=== PATIENT | male | born 1960 | race Caucasian/White ===

== ENCOUNTER 2016-08-01 17:19 | Emergency (ER) | payer BC, OTHER ==
[2016-08-01 17:24] VITALS: BP 141/83; PULSE 81; TEMP 97.4; BMI 33.0
[2016-08-01] MEDS ORDERED: SODIUM CHLORIDE 0.9% 1000 ML INFUS.BAG IV ONE (18:14)
[2016-08-01] MEDS ORDERED: KETOROLAC TROMETHAMINE 30 MG/1 ML VIAL IVPUSH ONE (18:27)
--- NOTE | 2016-08-01 18:33 | PDOC ---
History of Present Illness - General Chief Complaint: Pain Stated Complaint: SIDE PAIN/VOMITING Time Seen by Provider: 08/01/16 18:12 - History of Present Illness Initial Comments: 08/01/16 18:28 CHIEF COMPLAINT: "kidney stones" HISTORY OF PRESENT ILLNESS: 55 yo M with hx of nephrolithiasis, cholelithiasis, and left inguinal hernia presents to ED with L flank pain since today. Patient reports that this feels like his previous kidney stones and that he had "two attacks today" with nausea, vomiting, and diaphoresis, and 10/10 pain to his L flank. PAST MEDICAL HISTORY: Denies past medical history FAMILY HISTORY: Denies SOCIAL HISTORY: Denies tobacco, illicit drug use. Occasional alcohol use. SURGICAL HISTORY: Denies ALLERGIES: codeine REVIEW OF SYSTEMS General/Constitutional: Denies fever or chills. Denies weakness, weight change. Cardiovascular: Denies chest pain or shortness of breath. Respiratory: Denies cough, wheezing, or hemoptysis. Gastrointestinal: Nausea/vomiting secondary to pain today. Denies diarrhea or constipation. Denies rectal bleeding. Genitourinary: L flank pain. Denies dysuria, frequency, or change in urination. Musculoskeletal: Denies joint or muscle swelling or pain. Denies neck or back pain. Neurologic: Denies headache, vertigo, loss of consciousness, or loss of sensation. PHYSICAL EXAM General Appearance: Well-appearing, appropriately dressed. . HEENT: EOMI, PERRLA. Respiratory/Chest: Lungs CTAB. Cardiovascular: RRR. S1, S2. Gastrointestinal/Abdominal: Normal bowel sounds. Abdomen soft, non-distended. No tenderness or rebound tenderness. No organomegaly, pulsatile mass, guarding , hernia, hepatomegaly, splenomegaly. Musculoskeletal/Extremities: L CVA tenderness. Normal inspection. FROM of all extremities, normal capillary refill. Pelvis Stable. No tenderness to extremities, pedal edema, swelling, erythema or deformity. Integumentary: Appropriate color, dry, warm. 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 Fully oriented, alert. Appropriate mood/affect. Motor strength 5/5. No appreciable EOM palsy, facial droop or sensory deficit. Past History - Past Medical History Allergies/Adverse Reactions: Allergies Allergy/AdvReac Type Severity Reaction Status Date / Time codeine AdvReac Verified 08/01/16 17:23 Home Medications: Ambulatory Orders No Home Medications 0 dose .ROUTE UTDICT 08/27/12 Ibuprofen 800 mg PO TID PRN #21 tablet 08/01/16 Tamsulosin HCl [Flomax] 0.4 mg PO DAILY #21 cap.er.24h 08/01/16 Kidney Stones: Yes - Psycho/Social/Smoking Cessation Hx Anxiety: No Suicidal Ideation: No Smoking Status: No Smoking History: Never smoked Number of Cigarettes Smoked Daily: 0 Hx Alcohol Use: Yes (SOCIAL) Drug/Substance Use Hx: No Substance Use Type: None *Physical Exam - Vital Signs Last Vital Signs Temp Pulse Resp BP Pulse Ox 97.4 F L 81 20 141/83 97 08/01/16 17:21 08/01/16 17:21 08/01/16 17:21 08/01/16 17:21 08/01/16 17:21 ED Treatment Course - LABORATORY CBC & Chemistry Diagram: 08/01/16 19:40 08/01/16 19:40 Medical Decision Making - Medical Decision Making 08/01/16 18:33 55 yo M with hx of nephrolithiasis, cholelithiasis, and left inguinal hernia presents to ED with L flank pain since today. -CBC, CMP -IVF, Toradol -Renal ultrasound Patient reports that he has an appointment on Saturday with surgeon to discuss cholecystectomy. 08/01/16 18:35 Advised patient to take medication as prescribed and follow up with urologist. Advised patient of signs and symptoms for return to ED. Patient verbalized understanding and agrees to plan. *DC/Admit/Observation/Transfer Diagnosis at time of Disposition: Kidney stone on left side - Discharge Dispostion Disposition: HOME Condition at time of disposition: Stable Admit: No - Prescriptions Prescriptions: Tamsulosin HCl [Flomax] 0.4 mg PO DAILY #21 cap.er.24h Ibuprofen 800 mg PO TID PRN #21 tablet PRN Reason: Pain - Referrals Referrals: Thomas Diallo MD., MD [Staff Physician] - - Patient Instructions Printed Discharge Instructions: DI for Kidney Stones Additional Instructions: Please take medication as directed. Follow up with urology for continued evaluation of your recurrent kidney stones. Please keep your appointment with the surgeon next Saturday regarding your gallstones. If you experience any worsening pain to your groin, any shortness of breath, chest pain, or increased nausea/vomiting, abdominal pain, or any new or worsening symptoms, please return to the ER. - Post Discharge Activity Work/School Note: Back to Work
--- NOTE | 2016-08-01 19:26 | PDOC ---
*Physical Exam - Vital Signs Last Vital Signs Temp Pulse Resp BP Pulse Ox 97.4 F L 81 20 141/83 97 08/01/16 17:21 08/01/16 17:21 08/01/16 17:21 08/01/16 17:21 08/01/16 17:21 ED Treatment Course - LABORATORY CBC & Chemistry Diagram: 08/01/16 19:40 08/01/16 19:40 Medical Decision Making - Medical Decision Making 08/01/16 19:26 agree with care from NITISH Leiva *DC/Admit/Observation/Transfer Diagnosis at time of Disposition: Kidney stone on left side - Discharge Dispostion Disposition: HOME Condition at time of disposition: Stable - Prescriptions Prescriptions: Tamsulosin HCl [Flomax] 0.4 mg PO DAILY #21 cap.er.24h Ibuprofen 800 mg PO TID PRN #21 tablet PRN Reason: Pain - Referrals Referrals: Thomas Diallo MD., MD [Staff Physician] - - Patient Instructions Printed Discharge Instructions: DI for Kidney Stones Additional Instructions: Please take medication as directed. Follow up with urology for continued evaluation of your recurrent kidney stones. Please keep your appointment with the surgeon next Saturday regarding your gallstones. If you experience any worsening pain to your groin, any shortness of breath, chest pain, or increased nausea/vomiting, abdominal pain, or any new or worsening symptoms, please return to the ER. - Post Discharge Activity Work/School Note: Back to Work
[2016-08-01] MEDS ORDERED: KETOROLAC TROMETHAMINE 30 MG/1 ML VIAL ONE (19:30)
[2016-08-01 19:58] LABS: BASOPHIL 0.6 % (0-2.0); MCH 28.9 pg (25.7-33.7); MCHC 33.3 g/dl (32.0-35.9); MEAN PLT VOLUME 9.3 fl (7.5-11.1); NEUTROPHILS 88.6 % (42.8-82.8); PLATELET COUNT 251 K/MM3 (134-434); RDW 13.1 % (11.9-15.9); WHITE BLOOD COUNT 14.8 K/mm3 (4.0-10.0)
[2016-08-01 20:24] LABS: ALBUMIN 4.1 g/dl (3.4-5.0); ANION GAP 8 (8-16); CALCIUM 9.2 mg/dL (8.5-10.1); CO2 27 mmol/L (21-32); CREATININE 1.4 mg/dL (0.7-1.3); GLUCOSE,RANDOM 126 mg/dL (74-106); SGOT/AST 30 U/L (15-37); SGPT/ALT 43 U/L (12-78)
[2016-08-01 20:26] LABS: ALK PHOS 92 U/L (45-117); BILIRUBIN,TOTAL 0.7 mg/dL (0.2-1.0); TOT PROT 7.6 g/dl (6.4-8.2)
[2016-08-01 20:45] LABS: URINE APPEARANCE CLEAR; URINE BILIRUBIN NEGATIVE (NEGATIVE); URINE COLOR LTYELLOW; URINE GLUCOSE (UA) NEGATIVE (NEGATIVE); URINE KETONE TRACE (NEGATIVE); URINE LEUK ESTERASE NEGATIVE (NEGATIVE); URINE NITRITE NEGATIVE (NEGATIVE); URINE UROBILINOGEN NEGATIVE E.U./dl (0.2-1.0)
[2016-08-01 20:47] LABS: URINE BLOOD 2+ (NEGATIVE); URINE PROTEIN 1+ (NEGATIVE)
[2016-08-01 20:49] LABS: URINE MUCUS RARE; URINE RBC 18 /hpf (0-3); URINE WBC 3 /hpf (3-5)
[2016-08-01] MEDS ORDERED: TAMSULOSIN HCL 0.4 MG CAP.ER.24H (FP) PO ONE (21:21)
[2016-08-01] MEDS ORDERED: TAMSULOSIN HCL 0.4 MG CAP.ER.24H (FP) ONE (21:51)
== END 2016-08-01 22:01 | disposition home or self-care (01) ==
LOC: JER 17:19
PROC: 3E0333Z Introduction of Anti-inflammatory into Peripheral Vein, Percutaneous Approach (ICD-10-PCS; principal; 2016-08-01)
DX: N20.0 Calculus of kidney (principal); Z87.442 Personal history of urinary calculi
CPT/HCPCS: 36415; 74176; 80053; 81003; 81015; 85025; 87086; 99282-25

== ENCOUNTER 2017-12-19 17:48 | Emergency (ER) | payer BC, OTHER ==
[2017-12-19 17:53] VITALS: TEMP 97.6; BMI 34.7
--- NOTE | 2017-12-19 17:55 | PDOC ---
Rapid Medical Evaluation Chief Complaint: Chest Pain Time Seen by Provider: 12/19/17 17:49 Medical Evaluation: Allergies Allergy/AdvReac Type Severity Reaction Status Date / Time codemadhu AdvReac Verified 08/01/16 17:23 12/19/17 17:50 I have performed a brief in-person evaluation of this patient. The patient presents with a chief complaint of: CP/ with SOB/ sweating on and off past few days.thought was pulled muscle. Had pressure taken at work and was high. Today was worse . Took 2 ASA 81mg Pertinent physical exam findings: pale/ I have ordered the following: EKG, chestpain order set The patient will proceed to the ED for further evaluation. 12/19/17 17:52 12/19/17 17:55 12/19/17 17:55 12/19/17 17:56 Discharge Disposition - Diagnosis Chest pain Qualifiers: Chest pain type: unspecified Qualified Code(s): R07.9 - Chest pain, unspecified - Referrals - Patient Instructions - Post Discharge Activity
[2017-12-19] MEDS ORDERED: LABETALOL HCL 5 MG/1 ML (100MG/20 ML VIAL) IVPUSH ONE (18:35)
[2017-12-19 18:37] LABS: BASO % 0.8 % (0-2.0); EOS % 0.9 % (0-4.5); HEMATOCRIT 44.4 % (35.4-49); HEMOGLOBIN 15.1 GM/dL (11.7-16.9); LYMPH % 26.1 % (8-40); MCH 29.8 pg (25.7-33.7); MEAN CELL VOLUME 87.5 fl (80-96); MEAN PLT VOLUME 8.9 fl (7.5-11.1); MONO % 7.2 % (3.8-10.2); PLATELET COUNT 251 K/MM3 (134-434); RBC 5.08 M/mm3 (4.00-5.60); RDW 13.3 % (11.9-15.9); WHITE BLOOD COUNT 11.9 K/mm3 (4.0-10.0)
[2017-12-19] MEDS ORDERED: LABETALOL HCL 5 MG/1 ML (200MG/40ML VIAL) IVPB ONE (18:50)
[2017-12-19 18:52] LABS: INR 1.06 (0.83-1.09); PROTHROMBIN TIME (PATIENT) 12.5 SEC (9.7-13.0)
[2017-12-19 18:59] LABS: ALBUMIN 4.3 g/dl (3.4-5.0); ALK PHOS 93 U/L (45-117); ANION GAP 8 MMOL/L (8-16); BLOOD UREA NITROGEN 23 mg/dL (7-18); CALCIUM 9.2 mg/dL (8.5-10.1); CHLORIDE 103 mmol/L (98-107); CO2 28 mmol/L (21-32); CREATININE 1.2 mg/dL (0.55-1.3); GLUCOSE,RANDOM 100 mg/dL (74-106); MAGNESIUM 2.2 mg/dL (1.8-2.4); POTASSIUM 3.6 mmol/L (3.5-5.1); SGOT/AST 30 U/L (15-37); SGPT/ALT 43 U/L (13-61); SODIUM 139 mmol/L (136-145)
--- NOTE | 2017-12-19 19:22 | PDOC ---
History of Present Illness - General Chief Complaint: Chest Pain Stated Complaint: CHEST PAIN Time Seen by Provider: 12/19/17 17:49 History Source: Patient Exam Limitations: No Limitations - History of Present Illness Initial Comments: 12/19/17 18:53 The patient is a 56M with no PMH (does not f/u with PCP) who presents to the ER with complaints of chest pressure. The patient states that he felt pressure in his retrosternal chest for 1 week, intermittent, radiating to his back, without exacerbating or alleviating factors. 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 It has been intermittent since. He denies any SOB, fevers, chills, nausea, vomiting, diaphoresis, numbness, tingling, and weakness. Past History - Past Medical History Allergies/Adverse Reactions: Allergies Allergy/AdvReac Type Severity Reaction Status Date / Time codeine AdvReac Verified 12/19/17 17:53 Home Medications: Ambulatory Orders Allopurinol [Zyloprim -] 300 mg PO DAILY 12/19/17 Amlodipine Besylate [Norvasc -] 5 mg PO DAILY #30 tablet 12/19/17 COPD: No Kidney Stones: Yes Other medical history: urine high protein in the past - Surgical History Abdominal Surgery: Yes (inguinal hernias) - Suicide/Smoking/Psychosocial Hx Smoking Status: No Smoking History: Never smoked Number of Cigarettes Smoked Daily: 0 Information on smoking cessation initiated: No Hx Alcohol Use: No Drug/Substance Use Hx: No Substance Use Type: None Review of Systems - Review of Systems Able to Perform ROS?: Yes Comments:: 12/19/17 19:22 GENERAL/CONSTITUTIONAL: No fever or chills. No weakness. HEAD, EYES, EARS, NOSE AND THROAT: No change in vision. No ear pain or discharge. No sore throat. CARDIOVASCULAR: Positive for chest pressure. No palpitations or lightheadedness. RESPIRATORY: No cough, wheezing, shortness of breath, or hemoptysis. GASTROINTESTINAL: No nausea, vomiting, diarrhea, constipation, or abdominal pain. GENITOURINARY: No dysuria, frequency, hematuria, or change in urination. MUSCULOSKELETAL: No joint or muscle swelling or pain. No neck or back pain. SKIN: No rash or lesions. NEUROLOGIC: No headache, numbness, tingling, focal weakness, loss of consciousness, or change in strength/sensation. Is the patient limited Lao proficient: No *Physical Exam - Vital Signs Last Vital Signs Temp Pulse Resp BP Pulse Ox 97.6 F 75 18 163/104 H 100 12/19/17 17:50 12/19/17 18:38 12/19/17 18:38 12/19/17 18:38 12/19/17 18:38 - Physical Exam Comments: 12/19/17 19:23 GENERAL: Well developed, well nourished. Awake and alert. No acute distress. HEENT: Normocephalic, atraumatic. Hearing grossly normal. Moist mucous membranes. PERRLA, EOMI. No conjunctival pallor. Sclera are non-icteric. NECK: Supple. Full ROM. No JVD. CARDIOVASCULAR: Regular rate and rhythm. No murmurs, rubs, or gallops. PULMONARY: No evidence of respiratory distress. Lungs clear to auscultation bilaterally. No wheezing, rales or rhonchi. ABDOMINAL: Soft. Non-tender. Non-distended. No rebound or guarding. GENITOURINARY: No CVA tenderness bilaterally. MUSCULOSKELETAL: Normal range of motion at all joints. No bony deformities or tenderness. EXTREMITIES: No cyanosis. No clubbing. No edema. No calf tenderness or swelling. SKIN: Warm and dry. Normal capillary refill. No rashes. No jaundice. NEUROLOGICAL: Alert, awake, appropriate. Cranial nerves 2-12 grossly intact. Normal speech. Gait is normal without ataxia. PSYCHIATRIC: Cooperative. Good eye contact. Appropriate mood and affect. ED Treatment Course - LABORATORY CBC & Chemistry Diagram: 12/19/17 18:26 12/19/17 18:26 - ADDITIONAL ORDERS Additional order review: Laboratory Results 12/19/17 18:26 PT with INR 12.50 INR 1.06 12/19/17 18:26 RBC 5.08 MCV 87.5 MCHC 34.0 RDW 13.3 MPV 8.9 Neutrophils % 65.0 D Lymphocytes % 26.1 D Monocytes % 7.2 D Eosinophils % 0.9 D Basophils % 0.8 - RADIOLOGY Radiology Studies Ordered: Category Date Time Status CHEST PA & LAT [RAD] Stat Radiology 12/19/17 18:36 Ordered Medical Decision Making - Medical Decision Making 12/19/17 19:23 The patient is a 56M with no PMH who presents to the ER with complaints of intermittent chest pressure, unlikely cardiac in origin 2/2 length of time of symptoms and onset of symptoms during exertional activity. Concern still for ACS , will r/o with EKG and 1 set of troponins. Pending labs and imaging. 12/19/17 20:11 CXR negative on preliminary read (no mediastinal widening, no effusion, no consolidation). Troponin negative. CBC CMP WNL. 12/19/17 20:37 Pt feels better. Will d/c with PCP f/u and give tylenol for MSK pain. *DC/Admit/Observation/Transfer Diagnosis at time of Disposition: Atypical chest pain Chest pain Qualifiers: Chest pain type: unspecified Qualified Code(s): R07.9 - Chest pain, unspecified - Discharge Dispostion Disposition: HOME Condition at time of disposition: Stable Decision to Admit order: No - Prescriptions Prescriptions: Amlodipine Besylate [Norvasc -] 5 mg PO DAILY #30 tablet - Referrals - Patient Instructions Printed Discharge Instructions: DI for Atypical Chest Pain Additional Instructions: Please follow up with your primary care physician at the designated appointment. Please return to the ER if you have any signs or symptoms of chest pain, shortness of breath, uncontrollable fever, chills, nausea, vomiting, numbness, tingling, or weakness in any part of your body, changes in vision, or slurred speech. Please take your medications as prescribed. Please return to the ER if symptoms persist, worsen, or new symptoms arise. - Post Discharge Activity
--- NOTE | 2017-12-19 20:05 | PDOC ---
Attending Attestation - Resident Resident Name: Amanda Lantiguaony - ED Attending Attestation I have performed the following: I have examined & evaluated the patient, The case was reviewed & discussed with the resident, I agree w/resident's findings & plan - HPI HPI: 12/19/17 19:59 56-year-old male with no severe past medical history other than borderline hypertension never treated with medications presents now sent by his work nurse for 1 week of chest and back pain. Patient was breaking into a wall about one week ago when he felt muscle strain in his chest and back, has had persistent pain since then described as pressure-like, across chest and back, positional in nature and not associated with any dyspnea on exertion or shortness of breath. The patient was able to perform his work duties for the rest of the week , presented today to the nurse for evaluation and was noted to have elevated blood pressures so he was referred to the emergency department. No new cough or fevers or chills, no orthopnea, no leg swelling. No headache or neurological complaints. - Physicial Exam PE: 12/19/17 20:02 elevated bp at triage, improved to 137/80 after medications alert and comfortable lying in stretcher perrl, eomi no jvd s1s2 rrr, no murmur ctab, no crackles neuro intact, slight reproducible discomfort to chest palpation no edema/calf ttp. some varicosities - Medical Decision Making 12/19/17 20:03 56-year-old male referred for 1 week of constant chest pain after strenuous activity. Elevated blood pressures but otherwise hemodynamically stable and neurologically intact, well-appearing. Presentation seems most consistent with musculoskeletal etiology, though dissection is low on the differential given the elevated blood pressure with chest/back pain. ACS is lower on the differential given the presentation. EKG is normal without evidence of LVH or strain Labs sent and are within normal limits with negative troponin Check chest x-ray, if no abnormalities noted and mediastinum, above findings are reassuring in the setting of one week of constant pain, we'll treat as musculoskeletal with cardiology referral. Prompt PCP follow-up arranged at clinic. Heart Score/ECG Review - History History: Slightly suspicious - Electrocardiogram EKG: Normal - Age Age: 45-65 - Risk Factors Based on the list above the patient has:: 1-2 risk factors - Troponin Troponin: </= normal limit - Score Heart Score - Total: 2 #1 General ECG Interpretation: Sinus Rhythm, Normal Rate, Normal Intervals (no LVH) , No acute ischemic changes
[2017-12-19 20:24] VITALS: BP 149/94; PULSE 68
[2017-12-19] MEDS ORDERED: ACETAMINOPHEN 325 MG TABLET (FP) PO ONE (20:36)
[2017-12-19] MEDS ORDERED: ACETAMINOPHEN 325 MG TABLET (FP) ONE (20:42)
--- NOTE | 2017-12-20 13:46 | EKG ---
Test Reason : Blood Pressure : / mmHG Vent. Rate : 086 BPM Atrial Rate : 086 BPM P-R Int : 142 ms QRS Dur : 096 ms QT Int : 398 ms P-R-T Axes : 058 027 057 degrees QTc Int : 476 ms POOR DATA QUALITY, INTERPRETATION MAY BE ADVERSELY AFFECTED NORMAL SINUS RHYTHM NORMAL ECG NO PREVIOUS ECGS AVAILABLE Confirmed by SAPNA CARROLL MD ([id number]) on 12/20/2017 1:45:50 PM Referred By: Confirmed By:SAPNA CARROLL MD
== END 2017-12-19 20:56 | disposition home or self-care (01) ==
LOC: JER 17:48
PROC: 3E033GC Introduction of Other Therapeutic Substance into Peripheral Vein, Percutaneous Approach (ICD-10-PCS; principal; 2017-12-19)
DX: R07.89 Other chest pain (principal); I10 Essential (primary) hypertension
CPT/HCPCS: 36415; 71045-TC-FY; 80053; 82550; 82553; 83735; 84484; 85025; 85610; 93005; 93010; 99285-25

== ENCOUNTER 2018-04-28 18:30 | Emergency (ER) | payer BC, OTHER ==
--- NOTE | 2018-04-28 18:45 | PDOC ---
Rapid Medical Evaluation Time Seen by Provider: 04/28/18 18:41 Medical Evaluation: Allergies Allergy/AdvReac Type Severity Reaction Status Date / Time codeine AdvReac Verified 12/19/17 17:53 04/28/18 18:41 I have performed a brief in-person evaluation of this patient. The patient presents with chief complaint of abdominal pain after dinner today. Reports shortness of breath Also reports eating cornbeef and cabbage this afternoon. Denies nausea, vomiting or diarrhea Pertinent physical exam findings NAD clear lungs bilaterally abdomen firm, +bowel sounds I have ordered the following ekg, abdominal xray, labs, The patient will proceed to the Ed for further evaluation Discharge Disposition - Diagnosis Abdominal pain - Referrals - Patient Instructions - Post Discharge Activity
[2018-04-28] MEDS ORDERED: FAMOTIDINE 20 MG/50 ML IVPB 20 MG/50 ML MG IVPB ONE ×2 (18:46→20:36)
[2018-04-28 18:50] VITALS: BMI 34.7
--- NOTE | 2018-04-28 20:16 | PDOC ---
History of Present Illness - General Chief Complaint: Pain Stated Complaint: CHEST PAIN Time Seen by Provider: 04/28/18 18:41 - History of Present Illness Initial Comments: Ryan Patterson is a 57yo man with a PMH of HTN, gallstones, GERD who presented to the ED with acute onset of 10/10 epigastric pain, bloating, and SOB that occurred shortly after eating a heavy meal. He states that the pain was sharp and felt like a tight pressure in his upper abdomen, and he felt that his abdomen felt hard to touch. He also feels that it appears visually bloated. He did not try taking any medication at home. He does note that he had corned beef and cabbage for dinner, and he also notes a history of gallstones though he has not had any problems with them for years. He denies any chest pain, LOWERY, vomiting, lightheadedness, or recent infectious symptoms. Mr Montague does state that he had "bad heartburn" yesterday after dinner, but has otherwise been feeling well. He did not take any reflux medication yesterday nor does he regularly do so. He states that he had an EGD previously and was told that he had erosions. He was prescribed a medication when diagnosed , but he never took it as he did not feel it was necessary. He also states that he was supposed to have his gallbladder taken out a few years ago but was found to have an inguinal hernia and had surgery for that instead. He never followed up with either GI or the surgeon afterwards. Currently, he states that he is feeling much better and only has minimal pain. Past History - Past Medical History Allergies/Adverse Reactions: Allergies Allergy/AdvReac Type Severity Reaction Status Date / Time codeine AdvReac Verified 04/28/18 18:42 Home Medications: Ambulatory Orders Allopurinol [Zyloprim -] 300 mg PO DAILY 12/19/17 Amlodipine Besylate [Norvasc -] 5 mg PO DAILY #30 tablet 12/19/17 COPD: No Kidney Stones: Yes - Surgical History Abdominal Surgery: Yes (inguinal hernias) - Immunization History Immunization Up to Date: Yes - Suicide/Smoking/Psychosocial Hx Smoking Status: No Smoking History: Never smoked Number of Cigarettes Smoked Daily: 0 Hx Alcohol Use: No Drug/Substance Use Hx: No Substance Use Type: None Review of Systems - Review of Systems Comments:: General: No fevers, no chills, no weight or appetite change, no malaise HEENT: No changes in vision, no changes in hearing, no congestion, no sore throat CV: No chest pain, no palpitations, no LE edema Pulm: +SOB tonight. No cough, no wheezing GI: See HPI : No frequency, no urgency, no dysuria Musc: No back pain, no joint swelling, no recent injury Skin: No rash, no lesions, no erythema Endo: No excessive thirst, no heat/cold intolerance Heme: No unusual bruising or bleeding, no swollen glands Neuro: No syncope, no numbness/tingling, no focal weakness Vasc: No claudication Psych: No recent change in mood, no SI or HI *Physical Exam - Vital Signs Last Vital Signs Temp Pulse Resp BP Pulse Ox 97.8 F 88 16 180/99 H 99 04/28/18 18:42 04/28/18 18:42 04/28/18 18:42 04/28/18 18:42 04/28/18 18:42 - Physical Exam Comments: General: Comfortable, no acute distress HEENT: PERRL, EOMI, MMM, voice normal, normal neck ROM Cards: RRR, no murmur appreciated Pulm: Comfortable on room air, clear to auscultation bilaterally Abd: Soft, nontender. Mildly distended : No CVA tenderness Ext: Atraumatic. No LE edema. ROM intact. Vasc: Extremities WWP Skin: Trace diffuse blotchy erythema (pt and state looks normal). No lesions, abrasions, bruising Neuro: A&Ox3, CN grossly intact, normal speech, motor/sensory grossly intact and symmetric Psych: Mood appropriate to situation Moderate Sedation - Procedure Monitoring Vital Signs: Procedure Monitoring Vital Signs Temperature 97.8 F 04/28/18 18:42 Pulse Rate 88 04/28/18 18:42 Respiratory Rate 16 04/28/18 18:42 Blood Pressure 180/99 H 04/28/18 18:42 O2 Sat by Pulse Oximetry (%) 99 04/28/18 18:42 ED Treatment Course - LABORATORY CBC & Chemistry Diagram: 04/28/18 20:40 04/28/18 20:40 Medical Decision Making - Medical Decision Making 04/28/18 20:12 Ryan Patterson is a 57yo man with a PMH of HTN, gallstones, GERD w/ erosion diagnosed on EGD not on medication who presented to the ED with acute onset of 10/10 epigastric pain, bloating, and SOB that occurred shortly after eating a heavy meal. He currently feels better and reports minimal pain. - Most likely gastritis, known GERD. Reports significant heartburn yesterday as well. - Less likely due to gallstones as no RUQ pain - Will r/o pancreatitis, though less likely as there is currently no pain and he has no h/o alcohol use - CBC, CMP, EKG, CXR ordered in RME. Will add lipase. 04/28/18 20:58 - EKG reviewed. NSR, HR 90. Normal EKG - IV placed by me, labs sent - Given famotidine. Now has feeling of tight throat, tearing. Oropharynx examined; uvula edema noted - Giving 125mg solu-medrol, 0.3 IM epinephrine, 50mg IV diphenhydramine 04/28/18 21:32 - Re-evaluated Mr Patterson. Still feels nasal congestion, watery eyes but states throat feels better - Still mild uvular swelling but improved - Will continue to monitor 04/28/18 22:04 - Feeling palpitations, sleepy - likely secondary to meds - Return of nausea. Zofran and 1L NS bolus ordered 04/29/18 00:57 - US completed. Reviewed in ED. Multiple gallstones. No gallbladder wall thickening, 0.29cm. No duct dilation, 0.65cm. - Mr Patterson feels significantly improved. Afebrile, HR and BP WNL. No longer has uvula edema or subjective throat tightening. Requesting to be discharged. - Pt has a surgeon that he has seen regarding his gallstones at [facility]. Will also refer to a surgeon at [facility]. - Advised Mr Patterson and his regarding return precautions at length. Both understand. - Will d/c home. Discussed with Dr Garcia. Kimberly Capone PGY1 *DC/Admit/Observation/Transfer Diagnosis at time of Disposition: Cholelithiasis - Discharge Dispostion Disposition: HOME Condition at time of disposition: Stable Decision to Admit order: No - Referrals Referrals: [facility] [Provider Group] - Patient Instructions Printed Discharge Instructions: DI for Gallstones Additional Instructions: Discharge Instructions: You were seen in the emergency department with abdominal pain. You had blood tests and an ultrasound, and you were diagnosed with gallstones. During your stay, you had an allergic reaction to famotidine (Pepcid). You should avoid taking this medication and related medications in the future including ranitidine (Xantac) and cimetidine. Home Care: - Avoid fatty, greasy, and fried foods as these can worsen the symptoms of your gallstones. - You should follow up with a surgeon to see if you need your gallbladder removed to prevent symptoms from occurring again in the future. - Make sure you avoid acid medications such as famotidine, ranitidine, and cimetidine - If you have symptoms of acid reflux or stomach irritation, you can take Prilosec (omeprazole) or Prevacid (lansoprazole). These should be taken every day. - For any acute symptoms of reflux, you can take Maalox, Mylanta or Tums. Seek immediate medical care if: - Your symptoms worsen - You have persistent abdominal pain, bilious (green) vomiting, especially if you have fever to 101F - You have any sensation of throat swelling, difficulty breathing, chest tightness, wheezing, or red skin rash - You have any other medical emergency. - Post Discharge Activity Forms/Work/School Notes: Back to Work
--- NOTE | 2018-04-28 20:46 | PDOC ---
Attending Attestation - HPI HPI: 04/28/18 21:09 The patient is a 57 year old male, with a significant past medical history of HTN, gallstones, GERD w/ erosion (diagnosed on EGD not on medication) who presents to the emergency department with epigastric pain. The patient describes the acute onset epigastric pain as nonradiating, pressure, 10/10 in severity shortly after eating corn beef and cabbage. The patient notes the pain is accommodated with SOB and bloating. The patient notes he attempted to throw up but did not. The patient denies chest pain, shortness of breath, headache or dizziness. The patient denies fever, chills, nausea, vomit, diarrhea or constipation. The patient denies dysuria, frequency, urgency or hematuria. Allergies: codeine Past surgical history: inguinal hernias Social history: None reported PCP: Has one but does not know his name. - Physicial Exam PE: 04/28/18 21:10 GENERAL: Awake, in no acute distress HEAD: No signs of trauma EYES: PERRLA, EOMI, sclera anicteric, conjunctiva clear ENT: (+) enlarged uvula. Auricles normal inspection, hearing grossly normal, nares patent. Moist mucosa NECK: Normal ROM, supple, no lymphadenopathy, JVD, or masses LUNGS: Breath sounds equal, clear to auscultation bilaterally. No wheezes, and no crackles HEART: Regular rate and rhythm, normal S1 and S2, no murmurs, rubs or gallops ABDOMEN: Soft, nontender, normoactive bowel sounds. No guarding, no rebound. No masses EXTREMITIES: Normal range of motion, no edema. No clubbing or cyanosis. No cords, erythema, or tenderness NEUROLOGICAL:(+) Alert and oriented x3. Cranial nerves II through XII grossly intact. Normal speech, normal gait SKIN: Warm, Dry, normal turgor, no rashes or lesions noted. <Fab Lynch - Last Filed: 04/28/18 21:09> - Resident Resident Name: Kimberly Capone - ED Attending Attestation I have performed the following: I have examined & evaluated the patient, The case was reviewed & discussed with the resident, I agree w/resident's findings & plan, Exceptions are as noted - HPI HPI: 04/28/18 20:45 57 yo male dev sudden epigastric pain after eating cabbage and corn beef - Physicial Exam PE: 04/28/18 20:52 wnwd 57 yo male has c/o watery eyes after receiving famotidine IV,also has c/o throat discomfort head ncat neck supple Oral pharynx exam reveals enlarged uvula lungs cta b/l cvs [id number] abd no rebound,no guarding ext no hives, no erythema upon presentation skin warm and dry neuro axox3,ambulatory psych appropriate 04/28/18 20:58 - Medical Decision Making 04/28/18 20:46 PMH htn,gerd had h/o EDG with gastric erosions -denies substeranl chest pain -pt now feeling better plan ekg,labs,PPI,reassess 04/28/18 21:01 pt suddenly started to have a reaction to the IV famotidine and given steroids, epi,bendryl 04/28/18 22:27 PT RE ASSESSMENT: pt's throat is more comfortable,speaking clearly but he has c /o feeling tremulousness from the epi pt's lfts sl elevated and he states his stomach is bothering him again, US pending 04/29/18 00:59 pt's allergy resolved,no hives,no throat discomfort,no wheezing,uvula midline Gallbladder US reveals large gallstones Pt states he feels better and wants to go home He has seen a surgeon for removal of his gallbladder , Dr Helton also did his hernia surgery.He states he will follow up with surgery LFTs sl elevated but he has no vomiting, no fever imp Allergic drug rxn, cholelithiasis pt to see surgery as an outpt <Missy Garcia - Last Filed: 04/29/18 01:04> Attestations - Attestations 04/28/18 21:10 Documentation prepared by Fab Lynch, acting as certified medical aide for Missy Garcia MD <Fab Lynch - Last Filed: 04/28/18 21:09>
[2018-04-28 20:55] LABS: BASO % 0.6 % (0-2.0); EOS % 0.7 % (0-4.5); HEMATOCRIT 41.8 % (35.4-49); HEMOGLOBIN 14.7 GM/dL (11.7-16.9); LYMPH % 11.5 % (8-40); MCH 31.3 pg (25.7-33.7); MEAN CELL VOLUME 89.3 fl (80-96); MEAN PLT VOLUME 8.8 fl (7.5-11.1); NEUT % 81.2 % (42.8-82.8); PLATELET COUNT 243 K/MM3 (134-434); RBC 4.69 M/mm3 (4.00-5.60); RDW 12.8 % (11.9-15.9); WHITE BLOOD COUNT 14.5 K/mm3 (4.0-10.0)
[2018-04-28] MEDS ORDERED: methylPREDNISolone NA SUCC 125 MG/2 ML VIAL IVPUSH ONE (20:55)
[2018-04-28] MEDS ORDERED: EPINEPHrine 1:1,000 0.3 MG/0.3 ML SYR IM ONE (20:55)
[2018-04-28] MEDS ORDERED: EPINEPHrine/PF 1 MG/1 ML (1:1,000) AMPULE ONE (20:58)
[2018-04-28] MEDS ORDERED: methylPREDNISolone NA SUCC 125 MG/2 ML VIAL ONE (20:59)
[2018-04-28 21:14] LABS: ALBUMIN 4.1 g/dl (3.4-5.0); ALK PHOS 111 U/L (45-117); ANION GAP 6 MMOL/L (8-16); BILIRUBIN,TOTAL 0.6 mg/dL (0.2-1); BLOOD UREA NITROGEN 23 mg/dL (7-18); CHLORIDE 104 mmol/L (98-107); CO2 31 mmol/L (21-32); CREATININE 1.3 mg/dL (0.55-1.3); GLUCOSE,RANDOM 112 mg/dL (74-106); POTASSIUM 3.8 mmol/L (3.5-5.1); SGOT/AST 169 U/L (15-37); SGPT/ALT 105 U/L (13-61); SODIUM 141 mmol/L (136-145); TOT PROT 7.9 g/dl (6.4-8.2)
[2018-04-28] MEDS ORDERED: ONDANSETRON 4 MG/2 ML VIAL IVPUSH ONE (21:57)
[2018-04-28] MEDS ORDERED: SODIUM CHLORIDE 0.9% 500 ML INFUS.BAG IV ONE (22:00)
[2018-04-28] MEDS ORDERED: ONDANSETRON 4 MG/2 ML VIAL ONE (22:05)
[2018-04-28] MEDS ORDERED: MAG HYDROX/AL HYDROX/SIMETH 30 ML UNIT-DOSE CUP PO ONE (22:40)
[2018-04-28] MEDS ORDERED: MAG HYDROX/AL HYDROX/SIMETH 30 ML UNIT-DOSE CUP ONE (22:57)
[2018-04-29 01:20] VITALS: BP 132/76; PULSE 78; TEMP 98.2
--- NOTE | 2018-04-29 10:42 | EKG ---
Test Reason : Blood Pressure : / mmHG Vent. Rate : 096 BPM Atrial Rate : 096 BPM P-R Int : 152 ms QRS Dur : 102 ms QT Int : 444 ms P-R-T Axes : 067 052 068 degrees QTc Int : 560 ms NORMAL SINUS RHYTHM NONSPECIFIC T WAVE ABNORMALITY PROLONGED QT ABNORMAL ECG WHEN COMPARED WITH ECG OF 28-APR-2018 18:26, NONSPECIFIC T WAVE ABNORMALITY NOW EVIDENT IN ANTEROLATERAL LEADS QT HAS LENGTHENED Confirmed by Juaquin Jim MD ([id number]) on 04/29/2018 10:41:46 AM Referred By: Confirmed By:Juaquin Jim MD
--- NOTE | 2018-04-30 12:02 | EKG ---
Test Reason : Blood Pressure : / mmHG Vent. Rate : 093 BPM Atrial Rate : 093 BPM P-R Int : 114 ms QRS Dur : 098 ms QT Int : 366 ms P-R-T Axes : 046 056 058 degrees QTc Int : 455 ms NORMAL SINUS RHYTHM NORMAL ECG WHEN COMPARED WITH ECG OF 19-DEC-2017 17:56, NO SIGNIFICANT CHANGE WAS FOUND Confirmed by CLAYTON SMITH MD ([id number]) on 04/30/2018 12:01:50 PM Referred By: Confirmed By:CLAYTON SMITH MD
== END 2018-04-29 01:24 | disposition home or self-care (01) ==
LOC: JER 18:30
PROC: 3E033GC Introduction of Other Therapeutic Substance into Peripheral Vein, Percutaneous Approach (ICD-10-PCS; principal; 2018-04-28)
PROC: 3E033GC Introduction of Other Therapeutic Substance into Peripheral Vein, Percutaneous Approach (ICD-10-PCS; 2018-04-28)
PROC: 3E0333Z Introduction of Anti-inflammatory into Peripheral Vein, Percutaneous Approach (ICD-10-PCS; 2018-04-28)
PROC: 3E0233Z Introduction of Anti-inflammatory into Muscle, Percutaneous Approach (ICD-10-PCS; 2018-04-28)
DX: K80.20 Calculus of gallbladder without cholecystitis without obstruction (principal); K21.9 Gastro-esophageal reflux disease without esophagitis; I10 Essential (primary) hypertension; T47.0X5A Adverse effect of histamine H2-receptor blockers, initial encounter; Y92.238 Other place in hospital as the place of occurrence of the external cause
CPT/HCPCS: 36415; 76705-TC; 80053; 83690; 85025; 93005; 93010; 99283-25

== ENCOUNTER 2023-04-22 13:12 | Emergency (ER) | payer BC, OTHER ==
[2023-04-22 13:25] VITALS: PULSE 86; RESP 18; TEMP 98; BMI 34.7
[2023-04-22] MEDS ORDERED: ACETAMINOPHEN INJECTION 100 ML IVPB ONE (15:08)
[2023-04-22] MEDS: ACETAMINOPHEN 1000 MG/100 ML BAG IVPB ONE (15:12)
[2023-04-22 15:15] LABS: BASO % 0.5 % (0-2.0); EOS % 0.9 % (0-4.5); HEMATOCRIT 43.9 % (35.4-49); LYMPH % 12.4 % (8-40); MCHC 34.2 g/dl (32.0-35.9); MEAN CELL VOLUME 87.7 fl (80-96); MEAN PLT VOLUME 8.7 fl (7.5-11.1); MONO % 6.2 % (3.8-10.2); PLATELET COUNT 257 10^3/uL (134-434); RDW 13.5 % (11.9-15.9); WHITE BLOOD COUNT 13.4 K/mm3 (4.0-10.0)
[2023-04-22 15:21] LABS: INR 1.08 (0.83-1.09); PROTHROMBIN TIME (PATIENT) 12.5 SEC (9.7-13.0)
[2023-04-22 16:21] LABS: CALCIUM 9.6 mg/dL (8.5-10.1)
[2023-04-22 16:22] LABS: ALBUMIN 3.9 g/dl (3.4-5.0); BLOOD UREA NITROGEN 21.4 mg/dL (7-18)
[2023-04-22 16:25] LABS: CREATININE 1.2 mg/dL (0.55-1.3)
[2023-04-22] MEDS ORDERED: METOCLOPRAMIDE HCL INJECTION 10 MG/2 ML VIAL IVPUSH PRN (16:25)
[2023-04-22 16:26] LABS: BILIRUBIN,TOTAL 1.1 mg/dL (0.2-1)
[2023-04-22 16:27] LABS: TOT PROT 7.5 g/dl (6.4-8.2)
[2023-04-22] MEDS ORDERED: KETOROLAC TROMETHAMINE 15 MG/ML VIAL ONE (16:40)
[2023-04-22] MEDS ORDERED: METOCLOPRAMIDE HCL INJECTION 10 MG/2 ML VIAL ONE (16:40)
[2023-04-22] MEDS: KETOROLAC TROMETHAMINE 15 MG/ML VIAL IVPUSH ONE (16:46)
[2023-04-22 21:29] LABS: ERYTHROCYTE SEDIMENTATION RATE 7 mm/hr (0-20)
[2023-04-22 23:20] VITALS: BP 150/88
== END 2023-04-22 23:20 | disposition home or self-care (01) ==
LOC: JER 13:12
PROC: 3E033NZ Introduction of Analgesics, Hypnotics, Sedatives into Peripheral Vein, Percutaneous Approach (ICD-10-PCS; principal; 2023-04-22)
DX: R51.9 Headache, unspecified (principal); H53.8 Other visual disturbances
CPT/HCPCS: 36415; 70450-TC; 70496-TC; 70498-TC; 80053; 82962; 85025; 85610; 85651; 85730; 86850; 86900; 86901; 93005; 93010; 99285-25; J0131; Q9967